=== PATIENT | male | born 1975 | race Two or more races ===

== ENCOUNTER 2016-09-26 23:30 | Emergency (ER) | payer OTHER, BC ==
[2016-09-27] MEDS ORDERED: LIDOCAINE/EPINEPHR/TETRACAINE 5 ML BOTTLE TOPICAL ONE (01:53)
--- NOTE | 2016-09-27 01:57 | ED ---
Wound/Laceration HPI - General Chief Complaint: Wound/Laceration Stated Complaint: [facility] forehead lac Time Seen by Provider: 09/27/16 01:42 Source: patient, RN notes reviewed Mode of arrival: ambulatory Limitations: no limitations - History of Present Illness Initial Comments: 41-year-old male presents to the emergency Department chief complaint of head laceration. Patient states he was at work he tripped over an instrument he fell forward and cut his hand on a piece of steel. Patient states he did not lose consciousness. Patient does not recall his last tetanus. Patient states that he has no headache. Patient denies any nausea. Patient states that he was concerned due to the bleeding and can't see thought that he should be evaluated.Patient denies any recent fever, chills, shortness of breath, chest pain, back pain, abdominal pain, nausea vomiting, numbness or tingling, dysuria or hematuria, constipation or diarrhea, headaches or visual changes, or any other current symptoms. - Related Data Home Medications Medication Instructions Recorded Confirmed Dextroamphetamine/Amphetamine 10 mg PO DAILY 02/22/14 04/06/15 [Adderall] Lisinopril [Prinivil] 20 mg PO DAILY 02/22/14 04/06/15 Previous Rx's Medication Instructions Recorded Hydrocodone/Acetaminophen [[place] 1 tab PO Q6HR PRN #20 tab 04/04/15 5-325] Sulfamethox-Tmp 800-160Mg [Bactrim 1 each PO Q12HR #20 tab 04/04/15 Ds] metroNIDAZOLE [Flagyl] 500 mg PO TID #30 tab 04/04/15 Allergies Allergy/AdvReac Type Severity Reaction Status Date / Time No Known Allergies Allergy Verified 09/27/16 00:02 Review of Systems ROS Statement: Those systems with pertinent positive or pertinent negative responses have been documented in the HPI. ROS Other: All systems not noted in ROS Statement are negative. Past Medical History Past Medical History: Hypertension Additional Past Medical History / Comment(s): neck pain History of Any Multi-Drug Resistant Organisms: None Reported Past Surgical History: Appendectomy Past Psychological History: No Psychological Hx Reported Smoking Status: Current every day smoker Past Alcohol Use History: Occasional Past Drug Use History: None Reported General Exam Limitations: no limitations General appearance: alert, in no apparent distress Head exam: Present: other (Patient does appear to have a for similar laceration to the top of the forehead.) Eye exam: Present: normal appearance, PERRL, EOMI. Absent: scleral icterus, conjunctival injection, periorbital swelling Neck exam: Present: normal inspection. Absent: tenderness, meningismus, lymphadenopathy Respiratory exam: Present: normal lung sounds bilaterally. Absent: respiratory distress, wheezes, rales, rhonchi, stridor Cardiovascular Exam: Present: regular rate, normal rhythm, normal heart sounds. Absent: systolic murmur, diastolic murmur, rubs, gallop, clicks Neurological exam: Present: alert, oriented X3, CN II-XII intact. Absent: motor sensory deficit Psychiatric exam: Present: normal affect, normal mood Skin exam: Present: warm, dry, intact, normal color. Absent: rash Course Vital Signs 09/27/16 00:00 Temperature 97.6 F Pulse Rate 76 Respiratory 18 Rate Blood Pressure 136/87 O2 Sat by Pulse 98 Oximetry Procedures - Procedures Initial comment: The skin was anesthetized with LET. The laceration was then cleansed with Betadine and irrigated with normal saline. The wound was inspected, and there was no evidence of injury to deep structures. No foreign body was noted in the wound. A total of 6 skin sutures were placed utilizing 6-0 nylon to a 4 cm laceration Medical Decision Making - Medical Decision Making 41-year-old male presents to the emergency department with a chief complaint of forehead laceration. Patient does not have a headache there is no loss of consciousness he denies any blood thinner use. At this time patient underwent suture care. We discussed care follow-up and return parameters all patient's questions. He stated he understood and is given the plan. He will be discharged. Disposition Clinical Impression: Scalp laceration Disposition: HOME SELF-CARE Condition: Stable Instructions: Laceration (ED) Additional Instructions: Please use medication as discussed. Please follow up with family doctor if symptoms have not improved over the next two days. Please return to the emergency room if your symptoms increase or worsen or for any other concerns. Please return to the emergency room in 5 days to have sutures removed. Please leave wound covered for the first 24-48 hours and then leave open to air after that time. Please use clean soap and water to clean the suture area to prevent scabbing over the top of your sutures. Please watch for any signs of infection which may include but not limited to increased pain, swelling, redness, fever or chills. Please return to the emergency room if any signs of infection do occur. Please return to the emergency room for any other concerns or complications. Referrals: Jessica Ludwig MD [Primary Care Provider] - 1-2 days Time of Disposition: 03:03
[2016-09-27 03:10] VITALS: BP 103/56; PULSE 65; RESP 15; TEMP 97.5
== END 2016-09-27 03:09 | disposition home or self-care (01) ==
LOC: EC 23:30
DX: S01.01XA Laceration without foreign body of scalp, initial encounter (principal); F17.200 Nicotine dependence, unspecified, uncomplicated; I10 Essential (primary) hypertension; W01.198A Fall on same level from slipping, tripping and stumbling with subsequent striking against other object, initial encounter; Y99.0 Civilian activity done for income or pay; Y92.69 Other specified industrial and construction area as the place of occurrence of the external cause
CPT/HCPCS: 12002; 99282

== ENCOUNTER → 2017-08-06 | Outpatient (CLI) | payer BC ==
--- NOTE | 2017-08-06 23:20 | MR ---
EXAMINATION TYPE: MR cervical spine wo con DATE OF EXAM: 08/06/2017 COMPARISON: NONE HISTORY: Low back pain neck pain TECHNIQUE: Multiplanar, multisequence images of the cervical spine were acquired. The vertebra have normal alignment. There is narrowing at C6-7 disc space. There is posterior central disc herniation at C5-6 and C6-7. There is developmentally adequate spinal canal. The canal measures 10 mm at C6-7. Cervical spinal cord appears normal. Brainstem appears normal. There is no spinal kat nosis. There is no fracture. There is small posterior disc bulge at C4-5. IMPRESSION: Posterior disc herniations at C5-6 and C6-7. No spinal stenosis.
== END | disposition home or self-care (01) ==
LOC: RADMRIMAIN 20:02
PROVIDERS: ATTEND Psychiatry & Neurology Neurology
DX: M50.222 Other cervical disc displacement at C5-C6 level (principal)
CPT/HCPCS: 72141

== ENCOUNTER 2017-10-15 19:15 | Emergency (ER) | payer BC ==
--- NOTE | 2017-10-15 21:26 | ED ---
General Adult HPI - General Chief complaint: Wound/Laceration Stated complaint: Fall Time Seen by Provider: 10/15/17 20:50 Source: patient, RN notes reviewed Mode of arrival: ambulatory Limitations: no limitations - History of Present Illness Initial comments: 42-year-old male presents to the emergency department for a chief complaint of head injury occurring about 18 hours ago. Patient states he has had limited neck mobility for the past few months due to chronic neck pain and a history of bulging disks. Patient states that he did not receive his unemployment check so was evicted by his landlord and had to move yesterday. Patient states he's been lifting heavy boxes in order to prepare for removing which is further injuring the mobility of his neck. Patient states that last night he was carrying a box up the steps when he missed a step and fell backwards. Patient states he believes he lost consciousness for 2-3 seconds. Apparently his daughter stated his eyes were closed for 2-3 seconds. Patient states he did vomit once after the fall but has not been nauseous since. Patient denies dizziness at this time. Patient admits to a mild headache. Patient denies any weakness or difficulty walking. Patient states he saw his pain specialist doctor today who recommended he come to the ER for evaluation of head injury. Patient has no other complaints at this time including shortness of breath, chest pain, abdominal pain, visual changes. - Related Data Home Medications Medication Instructions Recorded Confirmed Lisinopril [Prinivil] 20 mg PO DAILY 02/22/14 10/15/17 Dextroamphetamine/Amphetamine 20 mg PO TID 10/15/17 10/15/17 [Adderall] HYDROcodone/APAP 10-325MG [[place] 1 tab PO BID PRN 10/15/17 10/15/17 10-325] Ibuprofen [Motrin] 800 mg PO Q8H PRN 10/15/17 10/15/17 Allergies Allergy/AdvReac Type Severity Reaction Status Date / Time No Known Allergies Allergy Verified 10/15/17 20:59 Review of Systems ROS Statement: Those systems with pertinent positive or pertinent negative responses have been documented in the HPI. ROS Other: All systems not noted in ROS Statement are negative. Past Medical History Past Medical History: Hypertension Additional Past Medical History / Comment(s): neck pain History of Any Multi-Drug Resistant Organisms: None Reported Past Surgical History: Appendectomy Past Psychological History: No Psychological Hx Reported Smoking Status: Current every day smoker Past Alcohol Use History: Occasional Past Drug Use History: None Reported General Exam Limitations: no limitations General appearance: alert, in no apparent distress Head exam: Absent: atraumatic (There is a small 2 cm abrasion on the posterior parietal scalp. no hematoma. no step off palpated) Eye exam: Present: normal appearance, PERRL, EOMI. Absent: scleral icterus, conjunctival injection, nystagmus, periorbital swelling ENT exam: Present: normal exam, normal oropharynx (Uvula midline), mucous membranes moist, TM's normal bilaterally (Negative hemotympanum), normal external ear exam (Negative Vazquez sign) Neck exam: Present: normal inspection. Absent: tenderness (No tenderness along the cervical spine), meningismus, full ROM (Patient has about 20 flexion and extension as well as 20 rotation bilaterally. Patient states this limited range of motion is chronic.), lymphadenopathy Respiratory exam: Present: normal lung sounds bilaterally. Absent: respiratory distress, wheezes, rales, rhonchi, stridor Cardiovascular Exam: Present: regular rate, normal rhythm, normal heart sounds. Absent: systolic murmur, diastolic murmur, rubs, gallop, clicks Neurological exam: Present: alert, oriented X3, CN II-XII intact, normal gait. Absent: motor sensory deficit Expanded Patient oriented to: Present: person, place, time Speech: Present: fluid speech Cranial nerves: EOM's Intact: Normal, Tongue Deviation: Normal, Nystagmus: Normal, Facial Sensation: Normal Cerebellar function: Finger to Nose: Normal, Heel to [place]: Normal Upper motor neuron: [place] Neglect: Normal, Pronator Drift: Normal Sensory exam: Upper Extremity Light Touch: Normal, Upper Extremity Pin Prick: Normal, Lower Extremity Light Touch: Normal, Lower Extremity Pin Prick: Normal Motor strength exam: RUE: 5, LUE: 5, RLE: 5, LLE: 5 DTR: Patellar (R): 2+, Patellar (L): 2+ Eye Response: (4) open spontaneously Motor Response: (6) obeys commands Verbal Response: (5) oriented Psychiatric exam: Present: normal affect (Patient pleasant and answering questions.), normal mood Skin exam: Present: warm, dry, intact, normal color. Absent: rash Course Vital Signs 10/15/17 10/15/17 20:20 22:32 Temperature 98.0 F 98.5 F Pulse Rate 78 70 Respiratory 16 15 Rate Blood Pressure 148/98 131/88 O2 Sat by Pulse 98 100 Oximetry Medical Decision Making - Medical Decision Making 42-year-old male patient to the emergency department for a chief complaint of head injury 18 hours. Patient states he missed a stop while walking up the first stair and fell backwards hitting his head on concrete. Patient states he may have lost consciousness for 2-3 seconds. Patient did vomit once. Patient denies any nausea at this time. Denies taking blood thinners. Patient denies any confusion, dizziness. Patient states he has had chronic neck pain that has worsened in the past few months and this limited mobility contributed to him missing a step as it was dark and he could not fully look down. Patient states he is seeing a supervisor paint for the neck pain. He states he feels he needs to be on disability so was wondering if he had any paperwork that would help him achieve this. Discussed he should follow up with primary care for disability paperwork. Patient states he only came to the emergency department because his primary care provider told him he may need his wound sutured on the back of his head. However on examination wound was cleaned and there is only an abrasion noted. No need for daniel or sutures. On exam, no focal neuro deficits. Patient is answering questions without difficulty. CT brain shows no mass effect or midline shift. No sign of intracranial hemorrhage. Patient has spondylitic changes at C6-C7 without any fractures. Patient states he is following up with pain management for the chronic neck pain. He will follow up with primary care for head injury. Patient aware to return to the emergency department if he has any worsening symptoms. These return precautions were discussed with him in detail. Disposition Clinical Impression: Head injury, Chronic neck pain Disposition: HOME SELF-CARE Condition: Good Instructions: Concussion (ED), Head Injury (ED) Additional Instructions: Please follow up with primary care in 1-2 days for recheck. Please take Tylenol for pain. Return to the emergency department if you have any worsening symptoms including dizziness, confusion, vomiting, or severe headache. Is patient prescribed a controlled substance at d/c from ED?: No Referrals: Jessica Ludwig MD [Primary Care Provider] - 1-2 days Time of Disposition: 22:18
--- NOTE | 2017-10-15 21:58 | CT ---
EXAMINATION TYPE: CT brain [place] DATE OF EXAM: 10/15/2017 COMPARISON: None HISTORY: pt fell backwards and hit his head/posterior neck pain CT DLP: 1358.6 mGycm Automated exposure control for dose reduction was used. TECHNIQUE: CT scan of the head and cervical spine are performed without contrast. FINDINGS: Ventricles and sulci appear normal. There is no mass effect nor midline shift. There is n o sign of intracranial hemorrhage. The calvarium is intact. The cervical vertebra have normal alignment. There is narrowing at C6-7 disc space with spurring of t he endplates. The posterior elements are intact. Facet joints are intact. Skull base is intact. IMPRESSION: Normal CT scan of the brain. Spondylotic change at C6-7. No fracture.
[2017-10-15 22:34] VITALS: BP 131/88; PULSE 70; RESP 15; TEMP 98.5
== END 2017-10-15 22:35 | disposition home or self-care (01) ==
LOC: EC 19:15
DX: S00.01XA Abrasion of scalp, initial encounter (principal); M54.2 Cervicalgia; G89.29 Other chronic pain; R11.10 Vomiting, unspecified; R40.2142 Coma scale, eyes open, spontaneous, at arrival to emergency department; R40.2252 Coma scale, best verbal response, oriented, at arrival to emergency department; R40.2362 Coma scale, best motor response, obeys commands, at arrival to emergency department; I10 Essential (primary) hypertension; F17.200 Nicotine dependence, unspecified, uncomplicated; Z79.899 Other long term (current) drug therapy; W10.9XXA Fall (on) (from) unspecified stairs and steps, initial encounter; Y93.01 Activity, walking, marching and hiking
CPT/HCPCS: 70450; 72125; 99283

== ENCOUNTER 2017-11-10 17:26 | Emergency (ER) | payer BC ==
[2017-11-10 17:51] VITALS: BP 127/85; PULSE 83; RESP 20; TEMP 98.1
--- NOTE | 2017-11-10 19:02 | ED ---
Neck Injury/Pain HPI - General Chief Complaint: Neck Pain/Injury Stated Complaint: Neck pain Time Seen by Provider: 11/10/17 18:35 Source: RN notes reviewed Mode of arrival: ambulatory Limitations: no limitations - History of Present Illness Initial Comments: This is a 42-year-old male who presents to the emergency department with chief complaint of chronic neck pain. Patient states that he sees Dr. Ludwig. He states that she has been suffering from an acute flareup of his chronic neck pain. He states that he does not see Dr. Norman, the back specialist until November 13. He states that Dr. Ludwig wrote him a work note to be off of work for 2 weeks but that the work note ended today. Patient states that he went to Dr. Ludwig's office today to obtain another work note until he follows up with the specialist, however patient did not have any money to pay the co-pay. He states that he went and donated plasma so he could get some money and when he returned to the doctor's office it was closed. Patient requests to have a work note that will dismiss him until he follows up with Dr. Norman. Patient denies any recent falls, injuries or trauma. He states he already takes [place] and Motrin for the pain. He denies recent fevers or chills, chest pain or shortness of breath, abdominal pain, nausea or vomiting. - Related Data Home Medications Medication Instructions Recorded Confirmed Lisinopril [Prinivil] 20 mg PO DAILY 02/22/14 11/10/17 Dextroamphetamine/Amphetamine 20 mg PO TID 10/15/17 11/10/17 [Adderall] HYDROcodone/APAP 10-325MG [[place] 1 tab PO BID PRN 10/15/17 11/10/17 10-325] Ibuprofen [Motrin] 800 mg PO Q8H PRN 10/15/17 11/10/17 Multivitamins, Thera [Multivitamin 1 tab PO DAILY 11/10/17 11/10/17 (formulary)] Tetrahydrozoline 0.05% Ophth 1 drop BOTH EYES QID 11/10/17 11/10/17 [Visine Eye Drops] Allergies Allergy/AdvReac Type Severity Reaction Status Date / Time No Known Allergies Allergy Verified 11/10/17 18:14 Review of Systems ROS Statement: Those systems with pertinent positive or pertinent negative responses have been documented in the HPI. ROS Other: All systems not noted in ROS Statement are negative. Past Medical History Past Medical History: Hypertension Additional Past Medical History / Comment(s): chronic neck pain History of Any Multi-Drug Resistant Organisms: None Reported Past Surgical History: Appendectomy Past Psychological History: ADD/ADHD Smoking Status: Current every day smoker Past Alcohol Use History: Occasional Past Drug Use History: Marijuana General Exam - General Exam Comments Initial Comments: General: Awake and alert, well-developed; in no apparent distress. HEENT: Head atraumatic, normocephalic. Pupils are equal, round and reactive to light. Extraocular movements intact. Oropharynx moist without erythema or exudate. Neck: Supple. Limited range of motion with rotation due to pain. No vertebral point tenderness. Cardiovascular: Regular rate and rhythm. No murmurs, rubs or gallops. Chest symmetrical. Respiratory: Lungs clear to auscultation bilaterally. No wheezes, rales or rhonchi. Normal respiratory effort with no use of accessory muscles. Musculoskeletal: Normal ROM, no tenderness bilateral upper and lower extremities. Ambulating normally. Skin: [place], warm and dry without rashes or lesions. Neurological: Alert and oriented x3. CN II-XII grossly intact. Speech is fluent and answers are appropriate. No focal neuro deficits. Psychiatric: Normal mood and affect. No overt signs of depression or anxiety noted. Limitations: no limitations Course Vital Signs 11/10/17 17:49 Temperature 98.1 F Pulse Rate 83 Respiratory 20 Rate Blood Pressure 127/85 O2 Sat by Pulse 98 Oximetry Medical Decision Making - Medical Decision Making This is a 42-year-old male who presents to the emergency department chief complaint chronic neck pain. Patient requests a work note to be excused until he follows up with back specialist, Dr. Norman on November 13. Patient states that he has been given [address] Ludwig but his work note ended today. Patient denies any recent falls, injuries or trauma. He states he takes medication for the neck pain and only wants a work note. Vitals are stable and he is in no acute distress. He will be discharged home at this time. He is in agreement and voices understanding. All questions were answered. Disposition Clinical Impression: Encounter to obtain excuse from work Disposition: HOME SELF-CARE Condition: Good Instructions: Chronic Neck Pain (DC) Additional Instructions: Please follow up with Dr. Norman as scheduled. Please follow up with primary care provider within 1-2 days. Return to emergency department if symptoms should worsen or any concerns arise. Is patient prescribed a controlled substance at d/c from ED?: No Referrals: Jessica Ludwig MD [Primary Care Provider] - 1-2 days Time of Disposition: 19:02
== END 2017-11-10 19:04 | disposition home or self-care (01) ==
LOC: EC 17:26
DX: Z02.89 Encounter for other administrative examinations (principal); M54.2 Cervicalgia; G89.29 Other chronic pain; I10 Essential (primary) hypertension; F90.9 Attention-deficit hyperactivity disorder, unspecified type; F17.200 Nicotine dependence, unspecified, uncomplicated; Z79.899 Other long term (current) drug therapy
CPT/HCPCS: 99283

== ENCOUNTER 2018-10-07 14:00 | Emergency (ER) | payer BC ==
[2018-10-07 14:36] VITALS: BP 140/86; PULSE 94; RESP 18; TEMP 98.3
--- NOTE | 2018-10-07 15:32 | XR ---
Left leg HISTORY: Heel pain, no trauma 2 views of the left leg on 4 images Correlation to prior exam 02/22/2014 There is no significant interval change. Bone mineralization, joint spaces and alignment are maintain ed. IMPRESSION: Stable exam, no acute abnormality.
--- NOTE | 2018-10-07 15:54 | ED ---
Lower Extremity Injury HPI - General Chief Complaint: Extremity Injury, Lower Stated Complaint: Achilles tendon pain Time Seen by Provider: 10/07/18 14:38 Source: patient Mode of arrival: ambulatory Limitations: no limitations - History of Present Illness Initial Comments: 43-year-old male presenting for left Achilles tendon pain. Patient states this is been ongoing for 4 months. He states that increases at work. Walking. He states that there is point localized tenderness over the distal Achilles near the top of his heel. Patient states she did not have any direct injury or trauma. He states he believes he is Achilles tendinitis after researching online. Patient denies a fever chills night sweats ankle swelling. He states that today when he woke up he felt a pop in the area. He was concerned and presents emergency room for evaluation. Patient continued to go on about how he cannot work with this pain. He is requesting work note to say that he cannot go back. Patient remaining review of system negative denies any other areas of pain or injury. Denies redness or flank symptoms. - Related Data Home Medications Medication Instructions Recorded Confirmed Lisinopril [Prinivil] 20 mg PO DAILY 02/22/14 10/07/18 Dextroamphetamine/Amphetamine 20 mg PO TID 10/15/17 10/07/18 [Adderall] HYDROcodone/APAP 10-325MG [[place] 1 tab PO BID PRN 10/15/17 10/07/18 10-325] Ibuprofen [Motrin] 800 mg PO Q8H PRN 10/15/17 10/07/18 Multivitamins, Thera [Multivitamin 1 tab PO DAILY 11/10/17 10/07/18 (formulary)] Tetrahydrozoline 0.05% Ophth 1 drop BOTH EYES QID 11/10/17 10/07/18 [Visine Eye Drops] Previous Rx's Medication Instructions Recorded Ibuprofen 600 mg PO Q8H PRN 7 Days #21 tablet 10/07/18 Allergies Allergy/AdvReac Type Severity Reaction Status Date / Time No Known Allergies Allergy Verified 10/07/18 14:35 Review of Systems ROS Statement: Those systems with pertinent positive or pertinent negative responses have been documented in the HPI. ROS Other: All systems not noted in ROS Statement are negative. Past Medical History Past Medical History: Hypertension Additional Past Medical History / Comment(s): chronic neck pain History of Any Multi-Drug Resistant Organisms: None Reported Past Surgical History: Appendectomy Past Psychological History: ADD/ADHD Smoking Status: Current every day smoker Past Alcohol Use History: Occasional Past Drug Use History: Marijuana General Exam - General Exam Comments Initial Comments: General: The patient is awake and alert, in no distress, and does not appear acutely ill. Eye: Pupils are equal, round and reactive to light, extra-ocular movements are intact. No nystagmus. There is normal conjunctiva bilaterally. No signs of icterus. Cardiovascular: There is a regular rate and rhythm. No murmur, rub or gallop is appreciated. Respiratory: Lungs are clear to auscultation, respirations are non-labored, breath sounds are equal. No wheezes, stridor, rales, or rhonchi. Musculoskeletal: Normal inspection of the ankles feet bilaterally. Palpable Achilles cord. 's test intact. Normal range motion of the ankles bilaterally. With full strength sensation intact. Proximal and distal to area complaint with equal comparison of the unaffected extremity +2 dorsalis pedis pulses bilaterally. No evidence of footdrop. No redness or swelling. Localized tenderness to the Achilles tendon near the insertion on heel. Neurological: A&O x 3. CN II-XII intact, There are no obvious motor or sensory deficits. Coordination appears grossly intact. Speech is normal. Skin: Skin is warm and dry and no rashes or lesions are noted. Psychiatric: Cooperative, appropriate mood & affect, normal judgment. Limitations: no limitations Course Vital Signs 10/07/18 14:30 Temperature 98.3 F Pulse Rate 94 Respiratory 18 Rate Blood Pressure 140/86 O2 Sat by Pulse 99 Oximetry Medical Decision Making - Medical Decision Making 43-year-old male presenting for pain at the Achilles tendon. Achilles tendon appears intact. 's test intact. Imaging studies negative for osseous injury or findings indicative of possible ligamentous injury or tendon injury. Patient denies any direct trauma. There is no swelling or redness. No flulike symptoms. Patient does have point localized tenderness of the Achilles tendon. Possible Achilles tendinitis. Patient is given outpatient with [facility] follow-up. Discussed [place] instructions. Recommended using crutches for ambulation. Patient given 3 days off work until he is evaluated by orthopedic surgery. Patient was discharged appearing well agreeable to plan and return parameters. Disposition Clinical Impression: Achilles tendonitis Disposition: HOME SELF-CARE Condition: Good Instructions (If sedation given, give patient instructions): Achilles Tendinitis (ED) Additional Instructions: Please use medication as discussed. Please follow-up with orthopedic surgery as discussed. Please return to emergency room if the symptoms increase or worsen or for any other concerns. Prescriptions: Ibuprofen 600 mg PO Q8H PRN 7 Days #21 tablet PRN Reason: Pain Is patient prescribed a controlled substance at d/c from ED?: No Referrals: Jessica Ludwig MD [Primary Care Provider] - 1-2 days Elliott Barrett DO [Medical Doctor] - 1-2 days Time of Disposition: 15:54
== END 2018-10-07 16:00 | disposition home or self-care (01) ==
LOC: EC 14:00
DX: M76.62 Achilles tendinitis, left leg (principal); I10 Essential (primary) hypertension; F90.9 Attention-deficit hyperactivity disorder, unspecified type; F17.200 Nicotine dependence, unspecified, uncomplicated; Z79.899 Other long term (current) drug therapy
CPT/HCPCS: 99283

== ENCOUNTER 2019-02-20 19:24 | Emergency (ER) | payer BC, OTHER ==
[2019-02-20 19:31] VITALS: BP 148/101; PULSE 92; RESP 18; TEMP 98.3
--- NOTE | 2019-02-20 20:02 | XR ---
EXAMINATION TYPE: XR thoracic spine complete DATE OF EXAM: 02/20/2019 COMPARISON: 06/28/2013 HISTORY: Back pain TECHNIQUE: 3 views FINDINGS: Vertebra have normal alignment. Posterior elements are intact. There is no paraspinal mass. I see no compression fracture. IMPRESSION: No acute abnormality of the thoracic spine. No change.
--- NOTE | 2019-02-20 20:05 | XR ---
EXAMINATION TYPE: XR chest 2V DATE OF EXAM: 02/20/2019 COMPARISON: NONE HISTORY: Rib pain. Coughing. TECHNIQUE: 2 views FINDINGS: Heart and mediastinum are normal. Lungs are clear. Diaphragm is normal. Bony thorax appears normal. IMPRESSION: Normal chest.
[2019-02-20] MEDS ORDERED: LIDOCAINE 5% PATCH TOPICAL STA (20:16)
--- NOTE | 2019-02-20 20:49 | ED ---
General Adult HPI - General Source: patient, RN notes reviewed, old records reviewed Mode of arrival: ambulatory Limitations: no limitations <Jonah Woods - Last Filed: 02/20/19 20:47> <Mel Finn - Last Filed: 02/21/19 13:41> - General Chief complaint: Extremity Injury, Upper Stated complaint: Rib pain Time Seen by Provider: 02/20/19 19:39 - History of Present Illness Initial comments: 44-year-old male patient with past history of hypertension presents to ED for chief complaint of right posterior rib pain. Patient reports that he works in a new job where he is doing up-and-down motions with his arms all day. Patient reports that he feels as if he is having some discomfort on his right posterior rib region. She reports that he has been exercising a lot recently. States that he was doing pull-ups and feels as if he can't have pain in this region. Once make sure that he has not had a rib dislocation. Denies any other complaints at this time. Systemic: Pt denies fatigue, fever/chills, rash. Pt denies weakness, night sweats, weight loss. Neuro: Pt denies headache, visual disturbances, syncope or pre-syncope. HEENT: Pt denies ocular discharge or irritation, otalgia, rhinorrhea, pharyngitis or notable lymphadenopathy. Cardiopulmonary: Pt denies chest pain, SOB, heart palpitations, dyspnea on exertion. Abdominal/GI: Pt denies abdominal pain, n/v/d. : Pt denies dysuria, burning w/ urination, frequency/urgency. Denies new onset urinary or bowel incontinence. MSK: Pt denies myalgia, loss of strength or function in extremities. Neuro: Pt denies new onset weakness, paresthesias. (Jonah Woods) - Related Data Home Medications Medication Instructions Recorded Confirmed Lisinopril [Prinivil] 20 mg PO DAILY 02/22/14 10/07/18 Dextroamphetamine/Amphetamine 20 mg PO TID 10/15/17 10/07/18 [Adderall] HYDROcodone/APAP 10-325MG [[place] 1 tab PO BID PRN 10/15/17 10/07/18 10-325] Ibuprofen [Motrin] 800 mg PO Q8H PRN 10/15/17 10/07/18 Multivitamins, Thera [Multivitamin 1 tab PO DAILY 11/10/17 10/07/18 (formulary)] Tetrahydrozoline 0.05% Ophth 1 drop BOTH EYES QID 11/10/17 10/07/18 [Visine Eye Drops] Previous Rx's Medication Instructions Recorded Ibuprofen 600 mg PO Q8H PRN 7 Days #21 tablet 10/07/18 Allergies Allergy/AdvReac Type Severity Reaction Status Date / Time No Known Allergies Allergy Verified 02/20/19 19:31 Review of Systems ROS Other: All systems not noted in ROS Statement are negative. <Jonah Woods - Last Filed: 02/20/19 20:47> ROS Other: All systems not noted in ROS Statement are negative. <Mel Finn - Last Filed: 02/21/19 13:41> ROS Statement: Those systems with pertinent positive or pertinent negative responses have been documented in the HPI. Past Medical History Past Medical History: Hypertension Additional Past Medical History / Comment(s): chronic neck pain History of Any Multi-Drug Resistant Organisms: None Reported Past Surgical History: No Surgical Hx Reported Past Psychological History: ADD/ADHD Smoking Status: Former smoker Past Alcohol Use History: Occasional Past Drug Use History: Marijuana <Jonah Woods - Last Filed: 02/20/19 20:47> General Exam Limitations: no limitations <Jonah Woods - Last Filed: 02/20/19 20:47> - General Exam Comments Initial Comments: Constitutional: NAD, AOX3, Pt has pleasant affect. HEENT: NC/AT, trachea midline, neck supple, no lymphadenopathy. Posterior pharynx non erythematous, without exudates. External ears appear normal, without discharge. Mucous membranes moist. Eyes PERRLA, EOM intact. There is no scleral icterus. No pallor noted. Cardiopulmonary: RRR, no murmurs, rubs or gallops, no JVD noted. Lungs CTAB in anterior and posterior ricks. No peripheral edema. Abdominal exam: Abdomen soft and non-distended. Abdomen non-tender to palpation in all 4 quadrants. Bowel sounds active in LLQ. No hepatosplenomegaly. No ecchymosis Neuro: CN II-XII grossly intact. No nuchal rigidity. No raccon eyes, no neal sign, no hemotympanum. No cervical spinal tenderness. MSK: Right Posterior parathoracic region mildly tender to palpation. No skin changes. No posterior calf tenderness bilaterally, homans sign negative bilaterally. Posterior tibialis and radial pulse +2 bilaterally. Sensation intact in upper and lower extremities. Full active ROM in upper and lower extremities, 5/5 stregnth. (Jonah Woods) Course Vital Signs 02/20/19 19:28 Temperature 98.3 F Pulse Rate 92 Respiratory 18 Rate Blood Pressure 148/101 O2 Sat by Pulse 98 Oximetry Medical Decision Making <Jonah Woods - Last Filed: 02/20/19 20:47> <Mel Finn - Last Filed: 02/21/19 13:41> - Medical Decision Making 44-year-old male patient presents to ED for chief complaint of rib pain after repetitive motions at work, pulse at home. Patient vital signs are stable, afebrile. Physical exam displayed right posterior rib/parathoracic region mildly tender. No skin changes. Full active range of motion of all extremities. Chest x-rays negative. Thoracic spine negative. Patient experiencing muscle skeletal strain. Will be discharged with lidocaine patch. Will return to ER if condition worsens. Case discussed with Dr. Finn. (Jonah Woods) I was available for consultation in the emergency department. The history and physical exam were done by the midlevel provider. I was consulted for this patients care. I reviewed the case with the midlevel provider and based on their presentation of the patient, I agree with the assessment, medical decision making and plan of care as documented. Chart was dictated using [employer] dictation software. Attempts were made to correct any dictation errors however some typographical errors may persist. (Mel Finn) Disposition Is patient prescribed a controlled substance at d/c from ED?: No <Jonah Woods - Last Filed: 02/20/19 20:47> <Mel Finn - Last Filed: 02/21/19 13:41> Clinical Impression: Muscle strain Disposition: HOME SELF-CARE Condition: Stable Instructions (If sedation given, give patient instructions): Muscle Strain (ED) Additional Instructions: follow-up with primary care provider tomorrow. Return to ER if condition worsens. Remove lidocaine Patch after 10 hours. Referrals: Jessica Ludwig MD [Primary Care Provider] - 1-2 days
== END 2019-02-20 21:13 | disposition home or self-care (01) ==
LOC: EC 19:24
DX: S29.011A Strain of muscle and tendon of front wall of thorax, initial encounter (principal); G89.29 Other chronic pain; M54.2 Cervicalgia; F90.9 Attention-deficit hyperactivity disorder, unspecified type; I10 Essential (primary) hypertension; Z79.899 Other long term (current) drug therapy; Z87.891 Personal history of nicotine dependence; X50.3XXA Overexertion from repetitive movements, initial encounter; Y93.89 Activity, other specified; Y92.69 Other specified industrial and construction area as the place of occurrence of the external cause
CPT/HCPCS: 71046; 72072; 99284

== ENCOUNTER → 2020-10-29 | Outpatient (CLI) | payer OTHER ==
--- NOTE | 2020-10-30 02:04 | MR ---
EXAMINATION TYPE: MR cervical spine wo con DATE OF EXAM: 10/29/2020 COMPARISON: 08/06/2017 HISTORY: Neck pain, BUE weankness and numbness. Multiplanar multiecho imaging of the cervical spine without contrast. The cervical vertebra have normal alignment. There is small posterior disc herniations at C5-6 and C6 -7. There is some facet arthropathy. There is mild relative spinal stenosis at C5-6 and C6-7. Canal m easures 7 mm at C6-7 which is the narrowest point. At C5-6 the canal measures 8 mm. Cervical spinal c ord shows no edema. Brainstem is intact. There is no compression fracture. There is no cervical ami aileen mass. I see no bony destructive process. IMPRESSION: Small posterior disc herniations at C5-6 and C6-7 appear not significantly different than old exam. N o significant spinal stenosis.
== END | disposition home or self-care (01) ==
LOC: RADMRIMAIN 21:06
PROVIDERS: ATTEND Psychiatry & Neurology Neurology
DX: M50.222 Other cervical disc displacement at C5-C6 level (principal)
CPT/HCPCS: 72141